=== PATIENT | male | born 1965 | race Caucasian/White ===

== ENCOUNTER 2017-07-09 02:45 | Inpatient (IN) | payer BC ==
[2017-07-09] VITALS (33 sets, daily range): BP systolic 85–121; BP diastolic 31–86
[~2017-07-09] VITALS: Ht 182.9 cm; Wt 102.1 kg
[~2017-07-09 02:45] MED LIST: ASPI81TA94 PO; CITA-137 PO; COCO1000 PO; CYA1000 PO; DM H PO; ESZ3PT PO; ESZO3TAB37 PO; FAMO-67 PO; GLUC-198 PO; HYDR-4308 PO; IBU600 PO; IBUP1TAB84 PO; IBUP800T37 PO; KET10 PO; LEVO-85 PO; LEVO500T83 PO; MULT1TAB64 PO; NAP375 PO; OMEP-125 PO; OXYC-763 PO; OXYC-868 PO; PRO25 PO; TAM4 PO; TAMS0.4C76 PO; VITA-197 PO; ZOLP-358 PO; antibiotic PO
[2017-07-09] MEDS ORDERED: METOCLOPRAMIDE 10 MG/2 ML SDV ONE (07:06)
[2017-07-09] MEDS ORDERED: LIDOCAINE MPF 1% 5 ML VIAL ONE (07:06)
[2017-07-09] MEDS ORDERED: DEXAMETHASONE SOD 4 MG/ML VIAL ONE (07:06)
[2017-07-09] MEDS ORDERED: ONDANSETRON 4 MG/2 ML VIAL ONE (07:06)
[2017-07-09] MEDS ORDERED: PROPOFOL EMUL(*) 10MG/ML 20 ML 20 ML ONE ×2 (07:06→08:40)
[2017-07-09] MEDS ORDERED: fentaNYL CITR 250 MCG/5 ML AMP ONE (07:08)
[2017-07-09] MEDS ORDERED: ROCURONIUM BROM 10 MG/ML 10 ML ONE (07:08)
[2017-07-09] MEDS ORDERED: SUGAMMADEX SOD 200 MG/2 ML SDV ONE (07:11)
[2017-07-09] MEDS ORDERED: POVIDONE IOD 10% OINT 30 GM TB TP ONE (07:21)
[2017-07-09 07:36] LABS: PLATELET COUNT, AUTOMATED 274 K/uL (150-450)
[2017-07-09 08:12] LABS: INR 1.05
[2017-07-09] MEDS ORDERED: MORPHINE PF 5 MG/10 ML AMP ONE (08:26)
[2017-07-09] MEDS ORDERED: MORPHINE 10 MG/ML SYR ONE (10:59)
[2017-07-09] MEDS ORDERED: cefTRIAXone(*) 2 GM VIAL 2 GM in NS(*) 0.9% 100 ML ADDVANT BAG 100 ML IVPB ONE (11:30)
[2017-07-09] MEDS ORDERED: MIDAZOLAM 2 MG/2 ML VIAL IVP ONE (11:30)
[2017-07-09] MEDS ORDERED: ceFAZolin(*) 1 GM VIAL 1 GM, GENTAMICIN(*) 80 MG/2 ML VIAL 60 MG in NS 0.9% IRRIGATION ... IR ONE (11:30)
[2017-07-09] MEDS ORDERED: LIDOCAINE/SOD BICARB 8.4% SYR ID ONE (11:30)
[2017-07-09] MEDS ORDERED: NORMOSOL R SOLN(*) 1000 ML BAG 1,000 ML IV PRN (11:30)
[2017-07-09] MEDS ORDERED: FAMOTIDINE 20 MG TAB PO ONE (11:30)
[2017-07-09] MEDS ORDERED: NEOMYCIN/POLYMYX/BACITR 30 GM TP ONE (12:34)
[2017-07-09] MEDS ORDERED: fentaNYL CITR 100 MCG/2 ML AMP ONE ×2 (12:58→13:32)
[2017-07-09] MEDS ORDERED: BELLADONNA ALK/OPIUM 60MG SUPP PR ONE (13:09)
[2017-07-09] MEDS ORDERED: GLYCOPYRROLATE 0.2 MG/ML SDV ONE (13:10)
[2017-07-09 13:39] LABS: PLATELET COUNT, AUTOMATED 310 K/uL (150-450)
[2017-07-09] MEDS ORDERED: HYDROmorphone PCA 6 MG/30 ML IV PRN (13:45)
[2017-07-09] MEDS ORDERED: FLUSH 10 ML SYR IVP PRN (13:45)
[2017-07-09] MEDS ORDERED: PROPANTHELINE BROMIDE 15MG TAB PO PRN (13:45)
[2017-07-09] MEDS ORDERED: ZOLPIDEM TARTRATE 5 MG TAB PO PRN (13:45)
[2017-07-09] MEDS ORDERED: ONDANSETRON 4 MG/2 ML VIAL IVP PRN ×2 (13:45→15:05)
[2017-07-09] MEDS ORDERED: NALOXONE HCL 0.4 MG/ML VIAL IVP PRN ×3 (13:45→15:05)
[2017-07-09] MEDS: ALBUTEROL 1.25 MG/3ML NEB NEB SCH ×3 (14:00→23:05)
[2017-07-09] MEDS: GENTAMICIN/NS 80 MG/100 ML PB 100 ML IVPB SCH ×2 (14:07→22:14)
[2017-07-09] MEDS: LR(*) 1000 ML BAG 1,000 ML IV PRN (15:00)
[2017-07-09] MEDS ORDERED: NALTREXONE HCL 50 MG TAB PO PRN (15:05)
[2017-07-09] MEDS ORDERED: METOCLOPRAMIDE 10 MG/2 ML SDV IVP PRN (15:05)
[2017-07-09] MEDS ORDERED: SCOPOLAMINE 1.5 MG PATCH TD PRN (15:05)
[2017-07-09] MEDS: NALBUPHINE HCL 10 MG/ML AMP IVP PRN (15:09)
[2017-07-09] MEDS ORDERED: GLYCOPYRROLATE 0.2 MG/ML SDV IVP PRN (19:11)
[2017-07-09] MEDS: DOCUSATE SODIUM 100 MG CAP PO SCH (20:30)
[2017-07-09] MEDS: NEOMYCIN/POLYMYX/BACITR OINT 1 PACKET TP SCH (20:30)
[2017-07-09] MEDS: FAMOTIDINE 20 MG TAB PO SCH (20:30)
[2017-07-09] MEDS: diphenhydrAMINE 25 MG CAP PO PRN (22:14)
[2017-07-10] VITALS (15 sets, daily range): BP systolic 82–111; BP diastolic 46–76; Ht 182.9 cm; Wt 102.1 kg
[2017-07-10] MEDS: LR(*) 1000 ML BAG 1,000 ML IV PRN ×2 (00:12→09:46)
[2017-07-10] MEDS ORDERED: BELLADONNA ALK/OPIUM 60MG SUPP PR PRN (01:12)
[2017-07-10] MEDS: NALBUPHINE HCL 10 MG/ML AMP IVP PRN ×2 (01:33→07:26)
[2017-07-10] MEDS: ALBUTEROL 1.25 MG/3ML NEB NEB SCH ×6 (01:43→21:55)
[2017-07-10] MEDS: GENTAMICIN/NS 80 MG/100 ML PB 100 ML IVPB SCH ×3 (05:38→21:20)
[2017-07-10] MEDS: diphenhydrAMINE 25 MG CAP PO PRN (05:38)
[2017-07-10 05:59] LABS: PLATELET COUNT, AUTOMATED 227 K/uL (150-450)
--- NOTE | 2017-07-10 06:45 | OPERATIVE REPORT 1 ---
EVENT DATE: July 09, 2017 SURGEON: Alex Ryder MD ANESTHESIOLOGIST: Joseph Delarosa MD ANESTHESIA: supply chain intern: Tyree Briggs MD PREOPERATIVE DIAGNOSIS Prostate cancer. POSTOPERATIVE DIAGNOSIS Prostate cancer. PROCEDURE PERFORMED 1. Radical retropubic prostatectomy. 2. Bilateral pelvic lymph node dissection. DESCRIPTION OF PROCEDURE Under general anesthetic, the patient was prepped and draped in the extended lithotomy position. The Salinas was placed per urethra and secured with 10 mL of solution in the balloon. The bladder was drained. The incision was made from the symphysis pubis to the umbilicus. The tissues were incised down to the anterior rectus fascia. Bleeding was controlled with spot coagulation and LigaSures throughout. The fascia was incised throughout the length of the incision. The endopelvic spaces were developed. Two sponges were placed in the dependent portion of the right and left endopelvic spaces bilaterally. The Bookwalter retractor was placed for lymph node dissection of the left endopelvic lymph nodes. The nerve and the neurovascular bundle, obturator were identified, preserved throughout the dissection. The left endopelvic lymph nodes were treated in likewise fashion. Frozen section diagnosis showed no evidence of metastatic disease. Fatty tissue was dissected from the anterior surface of the prostate and bladder neck area. The transfixion suture of #0-Vicryl was placed in the bed of the prostate, which was relatively small. The suspensory ligaments were cross clamped, and a transfixion suture of 2-0 Chromic catgut suture was placed through the tissue and was tied down prior to incision. The tissue was reclamped, and the tissue was divided with coagulation current almost down to the anterior urethra. Another bit of tissue anteriorly was cross clamped and tied off with 2-0 Chromic catgut suture. The urethra was elevated from the bed of the urethra. The nerves were reflected laterally bilaterally and a clamp was passed underneath the urethra ventrally. The anterior urethra was incised. The Salinas was delivered and secured. The anastomotic sutures of 2-0 Monocryl were placed at the 10, 2 and 12 o'clock position, and tagged appropriately. The posterior urethra was incised. The rectal urethralis fascia was perforated, and the prostate was elevated off the rectum cephalad to the bladder neck area. After careful dissection, the ampulla and vas were hemoclipped, and the blood supply to the seminal vesicles was hemoclipped. The neurovascular bundles were isolated close to the bladder neck area with its attachment to the prostate, and was tied off with #0-silk ligatures bilaterally. The prostate was dissected from the bladder neck area from its circular fibers circumferentially. This maintained a continent bladder neck area. The mucosa was everted with interrupted 4-0 Chromic catgut suture. The Sal[place] was placed per urethra into the bladder with approximately 10 mL of solution. The remainder of the anastomotic sutures were placed at the 5 and 7 o'clock positions. The sutures were placed through the bladder neck area at the 2, 12, 10, 5 and 7 o'clock positions. Bleeding was checked and treated prior to the anastomotic closure. The Sal[place] was filled with a total of 30 mL of solution. The bladder was brought down to the urogenital diaphragm. The anastomotic sutures were tied down circumferentially. The bladder irrigated clear at the conclusion of the anastomosis. The wound was irrigated with double antibiotic solution several times. Bleeding appeared to be satisfactorily controlled. The J-VAC drains were placed bilaterally in the lower quadrant areas and secured with #0-silk ligatures. The muscle was reapproximated with #1-Chromic catgut suture. The fascia was closed with loop PDS. The subcutaneous tissue was irrigated with double antibiotic solution. The subcutaneous tissue was closed with interrupted 3-0 plain catgut. The skin was closed with skin clips. Estimated blood loss: See anesthesiologist note for details. Patient was stable throughout the procedure. The wound was cleaned and dressed in usual fashion. The urethral catheter was secured to the left leg on gentle tension. Patient returned to the recovery room in satisfactory condition. INDICATIONS FOR PROCEDURE This is a 31-year-old white male complaining of prostate cancer, PSA was 5, and Mcintire's grade was 6. Options were discussed with the patient pre-treatment as to removal of the prostate versus radiation therapy, primarily seeds. Patient obtained a second opinion, and preferred to have his procedure done at our facility. That has been accomplished, see operative note for details. DISCHARGE INSTRUCTIONS Patient will be hospitalized probably for approximately 3-4 days. The patient will subsequently be probably discharged on Cipro, Pepcid, Motrin, Colace, Vicodin therapy. MTDD
[2017-07-10] MEDS: DOCUSATE SODIUM 100 MG CAP PO SCH ×4 (08:56→21:21)
[2017-07-10] MEDS: NEOMYCIN/POLYMYX/BACITR OINT 1 PACKET TP SCH ×2 (08:56→21:21)
[2017-07-10] MEDS: cefTRIAXone 1 GM VIAL IVP SCH (08:57)
[2017-07-10] MEDS: FAMOTIDINE 20 MG TAB PO SCH ×2 (08:57→21:20)
[2017-07-10] MEDS: MORPHINE 1 MG/ML 30 ML PCA IV PRN ×2 (09:05→22:00)
[2017-07-10] MEDS ORDERED: FUROSEMIDE 20 MG/2 ML VIAL IVP ONE (12:05)
[2017-07-10] MEDS: METOCLOPRAMIDE 10 MG TAB PO SCH ×3 (12:27→23:37)
[2017-07-10] MEDS: BISACODYL 10 MG SUPP PR SCH ×3 (17:00→21:20)
[2017-07-10] MEDS ORDERED: BISACODYL 10 MG SUPP PR PRN (22:05)
[2017-07-11] MEDS: ALBUTEROL 1.25 MG/3ML NEB NEB SCH ×6 (02:00→21:52)
[2017-07-11 04:29] VITALS: BP 116/54
[2017-07-11] MEDS: METOCLOPRAMIDE 10 MG TAB PO SCH (05:56)
[2017-07-11] MEDS: GENTAMICIN/NS 80 MG/100 ML PB 100 ML IVPB SCH ×3 (06:08→21:38)
[2017-07-11 06:45] LABS: PLATELET COUNT, AUTOMATED 241 K/uL (150-450)
[2017-07-11 07:37] VITALS: BP 117/73
[2017-07-11] MEDS: DOCUSATE SODIUM 100 MG CAP PO SCH ×3 (08:11→20:16)
[2017-07-11] MEDS: MULTIVITAMINS TAB PO SCH (08:12)
[2017-07-11] MEDS: FAMOTIDINE 20 MG TAB PO SCH ×2 (08:12→20:16)
[2017-07-11] MEDS: cefTRIAXone 1 GM VIAL IVP SCH (09:14)
[2017-07-11] MEDS: NEOMYCIN/POLYMYX/BACITR OINT 1 PACKET TP SCH ×2 (10:00→20:16)
[2017-07-11] MEDS ORDERED: FUROSEMIDE 20 MG/2 ML VIAL IVP ONE (11:50)
[2017-07-11] MEDS ORDERED: BISACODYL 10 MG SUPP PR PRN (11:50)
[2017-07-11] MEDS: MORPHINE 1 MG/ML 30 ML PCA IV PRN (12:34)
[2017-07-11 12:35] VITALS: BP 106/62
[2017-07-11 15:58] VITALS: BP 106/69
[2017-07-11] MEDS: diphenhydrAMINE 25 MG CAP PO PRN (20:16)
[2017-07-11] MEDS: APAP/HYDROCODONE 325/7.5 TAB PO PRN (20:17)
[2017-07-11 20:24] VITALS: BP 106/59
[2017-07-12] MEDS: APAP/HYDROCODONE 325/7.5 TAB PO PRN ×6 (01:14→21:31)
[2017-07-12 01:19] VITALS: BP 103/60
[2017-07-12] MEDS: ALBUTEROL 1.25 MG/3ML NEB NEB SCH ×3 (02:00→10:02)
[2017-07-12 03:18] VITALS: BP 106/61
[2017-07-12 07:53] VITALS: BP 106/61
[2017-07-12] MEDS ORDERED: PATCH REMOVAL 1 EA TP SCH (09:00)
[2017-07-12] MEDS: FAMOTIDINE 20 MG TAB PO SCH ×2 (09:12→20:26)
[2017-07-12] MEDS: NEOMYCIN/POLYMYX/BACITR OINT 1 PACKET TP SCH ×2 (09:13→20:25)
[2017-07-12] MEDS: MULTIVITAMINS TAB PO SCH (09:13)
[2017-07-12] MEDS: DOCUSATE SODIUM 100 MG CAP PO SCH ×2 (09:13→20:26)
[2017-07-12] MEDS: cefTRIAXone 1 GM VIAL IVP SCH (09:14)
[2017-07-12] MEDS ORDERED: NEOMYCIN/POLYMYX/BACITR OINT 1 PACKET TP ONE (10:00)
[2017-07-12] MEDS ORDERED: FUROSEMIDE 20 MG/2 ML VIAL IVP ONE (10:50)
[2017-07-12] MEDS ORDERED: KETOROLAC 15 MG/ML VIAL IVP ONE (10:50)
[2017-07-12] MEDS ORDERED: ALBUTEROL 1.25 MG/3ML NEB NEB PRN (11:35)
[2017-07-12] MEDS ORDERED: ALBUTEROL 2.5 MG/3 ML NEB NEB SCH (14:00)
[2017-07-12 16:00] VITALS: BP 105/57
[2017-07-12] MEDS: ALBUTEROL 2.5 MG/3 ML NEB NEB SCH ×3 (18:29→22:30)
[2017-07-12 20:22] VITALS: BP 100/60
[2017-07-12] MEDS: KETOROLAC 15 MG/ML VIAL IVP SCH (20:26)
[2017-07-13] MEDS: APAP/HYDROCODONE 325/7.5 TAB PO PRN ×3 (01:35→10:37)
[2017-07-13 01:38] VITALS: BP 110/55
[2017-07-13] MEDS: ALBUTEROL 2.5 MG/3 ML NEB NEB SCH ×2 (05:32→11:13)
[2017-07-13] MEDS: KETOROLAC 15 MG/ML VIAL IVP SCH (05:40)
[2017-07-13 08:03] VITALS: BP 98/59
[2017-07-13] MEDS: cefTRIAXone 1 GM VIAL IVP SCH (08:19)
[2017-07-13] MEDS ORDERED: DOCU-416 PO (09:40)
[2017-07-13] MEDS ORDERED: FAMO20TA28 PO (09:40)
[2017-07-13] MEDS ORDERED: IBUP800T37 PO (09:41)
[2017-07-13] MEDS ORDERED: HYDR-4308 PO (09:42)
[2017-07-13] MEDS ORDERED: HYDR-4309 PO (09:42)
[2017-07-13] MEDS ORDERED: CEPH500T7 PO (09:45)
[2017-07-13] MEDS: FAMOTIDINE 20 MG TAB PO SCH (10:36)
[2017-07-13] MEDS: DOCUSATE SODIUM 100 MG CAP PO SCH (10:37)
[2017-07-13] MEDS: NEOMYCIN/POLYMYX/BACITR OINT 1 PACKET TP SCH (10:37)
[2017-07-13] MEDS: MULTIVITAMINS TAB PO SCH (10:37)
[2017-07-13 11:48] VITALS: BP 111/59
== END 2017-07-13 12:00 | disposition home or self-care (01) | DRG 708 ==
LOC: OR 02:45 → ICU 14:45 → MED 07-10 12:15
PROC: 0VT30ZZ Resection of Bilateral Seminal Vesicles, Open Approach (ICD-10-PCS; 2017-07-09)
PROC: 07BC0ZZ Excision of Pelvis Lymphatic, Open Approach (ICD-10-PCS; 2017-07-09)
PROC: 0VT00ZZ Resection of Prostate, Open Approach (ICD-10-PCS; principal; 2017-07-09 08:43)
DX: C61 Malignant neoplasm of prostate (principal); F41.9 Anxiety disorder, unspecified; Z91.013 Allergy to seafood
CPT/HCPCS: 36415; 82310; 82374; 82435; 82565; 82947; 84132; 84295; 84520; 85025; 85049; 85379; 85384; 85610; 85730; 86850; 86900; 86901; 86920; 88305; 88309; 88331; 94010; 94640; 97161; A4338; J0690; J0696; J1100; J1170; J1580; J1885; J1940; J2001; J2250; J2270; J2300; J2405; J2704; J2765; J3010; J3490; J7050; J7120; J7613; J8597; Q0163

== ENCOUNTER → 2017-07-23 | Outpatient (CLI) | payer BC ==
[2017-07-10 09:50] VITALS: BMI 30.5
[~2017-07-23] MED LIST changes: +CEPH500T7 PO; +DOCU-416 PO; +FAMO20TA28 PO; +HYDR-4309 PO; +IOTHALAMATE MEGLU 172MG/ML BTL 250 ML IVPB ONE
--- NOTE | 2017-07-23 16:52 | RADIOLOGY IMAGING REPORT ---
FACILITY: [facility] PATIENT NAME: Ashish Mustafa : 1965 MR: [id number] V: [id number] EXAM DATE: ORDERING PHYSICIAN: LANDON BARRIOS TECHNOLOGIST: [place] [facility] [place] Ashish Mustafa : 1965 Visit/Account:[id number] Date of Sevice: 07/23/2017 Exam type: CYSTOGRAM History: Posterior prostatectomy Comparison: None. Findings: Cysto-Conray was instilled into the urinary bladder through the indwelling Salinas catheter by Dr. Braden jones. Numerous KUBs demonstrate contrast within the urinary bladder. There was some extravasation of c ontrast around the prosthetic urethral portion of the Salinas catheter. No extraluminal extravasation from the bladder itself was identified. IMPRESSION: 1. Some contrast extravasation was noted about the Salinas catheter in the vicinity of the prosthetic urethra Report Dictated By: Connie Fallon MD at 07/23/2017 4:45 PM Report E-Signed By: Connie Fallon MD at 07/23/2017 4:47 PM WSN:[email or web address]
== END ==
LOC: RAD 00:32
DX: C61 Malignant neoplasm of prostate (principal)
CPT/HCPCS: 51600; 74430; Q9958

== ENCOUNTER → 2017-07-28 | Outpatient (CLI) | payer BC ==
[2017-07-10 09:50] VITALS: BMI 30.5
[~2017-07-28] MED LIST changes: -IOTHALAMATE MEGLU 172MG/ML BTL 250 ML IVPB ONE
--- NOTE | 2017-07-28 09:13 | RADIOLOGY IMAGING REPORT ---
FACILITY: [facility] - [place] PATIENT NAME: Ashish Mustafa : 1965 MR: [id number] V: [id number] EXAM DATE: ORDERING PHYSICIAN: LANDON BARRIOS TECHNOLOGIST: Location: [facility] Patient: Ashish Mustafa : 1965 Visit/Account:[id number] Date of Sevice: 07/28/2017 Exam type: CYSTOGRAM History: Adenocarcinoma the prostate Comparison: July 23, 2017. Findings: Cysto-Conray contrast was instilled in the urinary bladder through the existing Salinas catheter by Dr. Barrios. Numerous KUBs demonstrate contrast within the urinary bladder. There was some extravasation of contrast around the prostatic urethral portion of Salinas catheter although to a lesser extent than on the prior study. IMPRESSION: 1. As above Report Dictated By: Connie Fallon MD at 07/28/2017 9:07 AM Report E-Signed By: Connie Fallon MD at 07/28/2017 9:09 AM WSN:[email or web address]
== END ==
LOC: RAD 01:42
DX: C61 Malignant neoplasm of prostate (principal)
CPT/HCPCS: 51600; 74430; Q9958

== ENCOUNTER → 2017-07-29 | Outpatient (CLI) | payer BC ==
[2017-07-10 09:50] VITALS: BMI 30.5
== END ==
LOC: LAB 10:24
DX: C61 Malignant neoplasm of prostate (principal)
CPT/HCPCS: 81001; 87088

== ENCOUNTER 2017-08-01 14:33 | Emergency (ER) | payer BC ==
[2017-07-10 09:50] VITALS: Wt 99.8 kg
[2017-08-01] MEDS ORDERED: NS(*) 0.9% 1000 ML BAG 1,000 ML IV ONE (14:55)
--- NOTE | 2017-08-01 14:55 | ER Report ---
History and Physical Time Seen By MD: 14:45 Hx. of Stated Complaint: Pt reporting "alot of blood" coming from penis when he urinates (15 minutes ago). Catheter was removed on thursday. Pt had prostatectomy Jul 09. Pt on prescription strength ibuprofin and states he is also bleeding from rectum (stated he thinks his BM) looks like coffee grounds. HPI/ROS CHIEF COMPLAINT: Blood in urine HISTORY OF PRESENT ILLNESS: 52-year-old male patient presents to emergency room with complaint of blood in his urine. Patient states that he is approximately 3 weeks postop from a total prostatectomy. He states that he been healing well, they did pull the catheter out on Thursday. He had a urinalysis done on Thursday. He states that today he started having bleeding. He states that he has passing a large amount of blood from his bladder. He denies having any fevers, chills, nausea, vomiting. Has had diarrhea. He states it does have a coffee-ground appearance. He has been taking ibuprofen 800 mg 3 times a day for the past 3 weeks. REVIEW OF SYSTEMS: Respiratory: No cough, no dyspnea. Cardiovascular: No chest pain, no palpitations. Gastrointestinal: As noted above Musculoskeletal: No back pain. Allergies: Coded Allergies: nitrous oxide (Verified Allergy, Severe, nausea and vomiting, 05/02/14) hydromorphone (Verified Allergy, Unknown, 08/01/17) procainamide (Unverified Allergy, Unknown, UNKNOWN, 04/10/14) shellfish derived (Unverified Allergy, Unknown, SHRIMP, 04/10/14) shrimp (Verified Allergy, Unknown, 08/01/17) Home Meds Active Scripts Ketorolac Tromethamine (KETOROLAC TROMETHAMINE) 10 Mg Tab, 10 MG PO Q6H, #20 TAB Prov:ZOIE AGUILA BILLIARD TABLE ASSEMBLER 08/01/17 Reported Medications Ibuprofen (IBUPROFEN) 800 Mg Tablet, 1 TAB PO TID Y for PAIN, #50 TAB 07/13/17 Docusate Sodium (COLACE) 100 Mg Capsule, 100 MG PO BID, CAPSULE 07/13/17 Famotidine (PEPCID) 20 Mg Tablet, 20 MG PO BID, #20 TAB 07/13/17 Levofloxacin 500 Mg Tab (LEVOFLOXACIN 500 MG TAB) 500 Mg Tablet, 500 MG PO DAILY , TAB 07/08/17 Hydrocodone Bit/Acetaminophen (NORCO 7.5-325 TABLET) 1 Each Tablet, 1 EACH PO Q4 -6H Y for PAIN for 30 Days, #30 06/15/17 Discontinued Reported Medications Cephalexin 500 Mg Tab (KEFLEX 500 MG TAB) 500 Mg Tablet, 500 MG PO TID, TAB Take it three times a day for 5 days and then one BID thereafter 07/13/17 Hydrocodone Bit/Acetaminophen (NORCO 7.5-325 TABLET) 1 Each Tablet, 1 EACH PO Q4 -6H Y for PAIN, #30 07/13/17 Hydrocodone Bit/Acetaminophen (NORCO 5-325 TABLET) 1 Each Tablet, 1 EACH PO Q4- 6H Y for PAIN, #30 TAB 07/13/17 Discontinued Scripts Zolpidem Tartrate (ZOLPIDEM TARTRATE) 10 Mg Tablet, 1 TAB PO HS Y for sleeplessness, #30 TAB 1 Refill Prov:ROSSANA MENDEZ MD 06/25/17 Past Medical/Surgical History Patient has a past medical history of pneumonia, blood in stool, prostate cancer arm fracture, alcohol use. Patient has a surgical history of a prostatectomy. Patient has a family medical history of cancer, CAD, diabetes. Reviewed Nurses Notes: Yes Hx Smoking: No Smoking Status: Never Smoker Exposure to Second Hand Smoke?: Yes Hx Alcohol Use: Yes Constitutional Vital Sign - Last 24 Hours 08/01/17 08/01/17 08/01/17 08/01/17 14:38 14:38 14:43 14:48 Temp 98.2 Pulse 75 75 69 Resp 18 B/P (MAP) 132/84 132/84 (100) Pulse Ox 94 94 93 O2 Delivery Room Air 08/01/17 08/01/17 08/01/17 08/01/17 14:53 15:03 15:08 15:13 Pulse 67 70 61 Pulse Ox 93 96 93 95 08/01/17 08/01/17 08/01/17 08/01/17 15:18 15:23 15:24 15:29 Pulse 61 58 66 61 B/P (MAP) 109/72 (84) Pulse Ox 97 94 92 08/01/17 08/01/17 08/01/17 08/01/17 15:54 15:59 16:00 16:04 Pulse 72 65 66 B/P (MAP) 115/86 (96) 122/77 (92) Pulse Ox 93 91 93 08/01/17 08/01/17 08/01/17 08/01/17 16:09 16:14 16:19 16:20 Pulse 67 73 65 B/P (MAP) 118/74 (89) Pulse Ox 93 97 95 08/01/17 16:44 Pulse 76 Pulse Ox 95 Intake and Output 08/01/17 08/01/17 08/02/17 15:00 23:00 07:00 Intake Total 1000 ml Balance 1000 ml Physical Exam General Appearance: The patient is alert, has no immediate need for airway protection and no current signs of toxicity. ENT: Tympanic membranes are pearly-mccarthy, auditory canals are patent, mucous membranes are moist. Respiratory: Chest is non tender, lungs are clear to auscultation. Cardiac: regular rate and rhythm Gastrointestinal: Abdomen is soft and non tender, no masses, bowel sounds normal. Musculoskeletal: Neck: Neck is supple and non tender. Extremities have full range of motion and are non tender. Skin: No rashes or lesions. DIFFERENTIAL DIAGNOSIS: After history and physical exam differential diagnosis was considered for urinary tract infection, postoperative complication, GI bleed. Medical Decision Making Data Points Result Diagram: 08/01/17 1502 08/01/17 1502 Laboratory Hematology Test 08/01/17 15:02 Red Blood Count 4.73 M/uL (4.00-5.60) Mean Corpuscular Volume 88.5 fL (80.0-96.0) Mean Corpuscular Hemoglobin 30.3 pg (26.0-33.0) Mean Corpuscular Hemoglobin Concent 34.3 g/dL (32.0-36.0) Red Cell Distribution Width 13.3 % (11.5-14.5) Mean Platelet Volume 7.4 fL (7.2-11.1) Neutrophils (%) (Auto) 67.0 % (39.4-72.5) Lymphocytes (%) (Auto) 23.5 % (17.6-49.6) Monocytes (%) (Auto) 7.4 % (4.1-12.4) Eosinophils (%) (Auto) 1.5 % (0.4-6.7) Basophils (%) (Auto) 0.6 % (0.3-1.4) Nucleated RBC Relative Count (auto) 0.3 /100WBC Neutrophils # (Auto) 3.7 K/uL (2.0-7.4) Lymphocytes # (Auto) 1.3 K/uL (1.3-3.6) Monocytes # (Auto) 0.4 K/uL (0.3-1.0) Eosinophils # (Auto) 0.1 K/uL (0.0-0.5) Basophils # (Auto) 0.0 K/uL (0.0-0.1) Nucleated RBC Absolute Count (auto) 0.02 K/uL Urine Color Red Urine Clarity Turbid Urine pH 6.0 pH (4.8-9.5) Urine Specific [place] 1.024 Urine Protein 100 mg/dL (NEGATIVE) Urine Glucose (UA) 50 mg/dL (NEGATIVE) Urine Ketones Negative mg/dL (NEGATIVE) Urine Blood Large (NEGATIVE) Urine Nitrite Negative (NEGATIVE) Urine Bilirubin Negative (NEGATIVE) Urine Urobilinogen Negative mg/dL (0.2-1.9) Urine Leukocyte Esterase Negative (NEGATIVE) Urine RBC 1656 /HPF (0-2/HPF) Urine WBC 16 /HPF (0-5/HPF) Urine Squamous Epithelial Cells None /LPF (</=FEW) Urine Bacteria Negative /HPF (NONE-FEW) Urine Hyaline Casts Few /LPF (NONE-FEW) Urine Mucus None /HPF (NONE-FEW) Sodium Level 141 mmol/L (137-145) Potassium Level 4.2 mmol/L (3.5-5.0) Chloride Level 105 mmol/L (98-107) Carbon Dioxide Level 24 mmol/L (22-30) Blood Urea Nitrogen 14 mg/dl (9-21) Creatinine 1.20 mg/dl (0.66-1.25) Glomerular Filtration Rate Calc > 60.0 Random Glucose 101 mg/dl (75-110) Calcium Level 9.5 mg/dl (8.4-10.2) Total Bilirubin 0.6 mg/dl (0.2-1.3) Aspartate Amino Transf (AST/SGOT) 23 U/L (0-35) Alanine Aminotransferase (ALT/SGPT) 35 U/L (0-56) Alkaline Phosphatase 63 U/L (0-126) C-Reactive Protein 2.4 mg/dl (<1.0) Total Protein 7.3 gm/dl (6.3-8.2) Albumin 4.1 g/dl (3.5-5.0) Chemistry Test 08/01/17 15:02 White Blood Count 5.5 k/uL (4.5-11.0) Red Blood Count 4.73 M/uL (4.00-5.60) Hemoglobin 14.4 g/dL (14.0-18.0) Hematocrit 41.9 % (42.0-52.0) Mean Corpuscular Volume 88.5 fL (80.0-96.0) Mean Corpuscular Hemoglobin 30.3 pg (26.0-33.0) Mean Corpuscular Hemoglobin Concent 34.3 g/dL (32.0-36.0) Red Cell Distribution Width 13.3 % (11.5-14.5) Platelet Count 360 K/uL (150-450) Mean Platelet Volume 7.4 fL (7.2-11.1) Neutrophils (%) (Auto) 67.0 % (39.4-72.5) Lymphocytes (%) (Auto) 23.5 % (17.6-49.6) Monocytes (%) (Auto) 7.4 % (4.1-12.4) Eosinophils (%) (Auto) 1.5 % (0.4-6.7) Basophils (%) (Auto) 0.6 % (0.3-1.4) Nucleated RBC Relative Count (auto) 0.3 /100WBC Neutrophils # (Auto) 3.7 K/uL (2.0-7.4) Lymphocytes # (Auto) 1.3 K/uL (1.3-3.6) Monocytes # (Auto) 0.4 K/uL (0.3-1.0) Eosinophils # (Auto) 0.1 K/uL (0.0-0.5) Basophils # (Auto) 0.0 K/uL (0.0-0.1) Nucleated RBC Absolute Count (auto) 0.02 K/uL Urine Color Red Urine Clarity Turbid Urine pH 6.0 pH (4.8-9.5) Urine Specific [place] 1.024 Urine Protein 100 mg/dL (NEGATIVE) Urine Glucose (UA) 50 mg/dL (NEGATIVE) Urine Ketones Negative mg/dL (NEGATIVE) Urine Blood Large (NEGATIVE) Urine Nitrite Negative (NEGATIVE) Urine Bilirubin Negative (NEGATIVE) Urine Urobilinogen Negative mg/dL (0.2-1.9) Urine Leukocyte Esterase Negative (NEGATIVE) Urine RBC 1656 /HPF (0-2/HPF) Urine WBC 16 /HPF (0-5/HPF) Urine Squamous Epithelial Cells None /LPF (</=FEW) Urine Bacteria Negative /HPF (NONE-FEW) Urine Hyaline Casts Few /LPF (NONE-FEW) Urine Mucus None /HPF (NONE-FEW) Glomerular Filtration Rate Calc > 60.0 Calcium Level 9.5 mg/dl (8.4-10.2) Total Bilirubin 0.6 mg/dl (0.2-1.3) Aspartate Amino Transf (AST/SGOT) 23 U/L (0-35) Alanine Aminotransferase (ALT/SGPT) 35 U/L (0-56) Alkaline Phosphatase 63 U/L (0-126) C-Reactive Protein 2.4 mg/dl (<1.0) Total Protein 7.3 gm/dl (6.3-8.2) Albumin 4.1 g/dl (3.5-5.0) Urinalysis Test 08/01/17 15:02 Urine Color Red Urine Clarity Turbid Urine pH 6.0 pH (4.8-9.5) Urine Specific [place] 1.024 Urine Protein 100 mg/dL (NEGATIVE) Urine Glucose (UA) 50 mg/dL (NEGATIVE) Urine Ketones Negative mg/dL (NEGATIVE) Urine Blood Large (NEGATIVE) Urine Nitrite Negative (NEGATIVE) Urine Bilirubin Negative (NEGATIVE) Urine Urobilinogen Negative mg/dL (0.2-1.9) Urine Leukocyte Esterase Negative (NEGATIVE) Urine RBC 1656 /HPF (0-2/HPF) Urine WBC 16 /HPF (0-5/HPF) Urine Squamous Epithelial Cells None /LPF (</=FEW) Urine Bacteria Negative /HPF (NONE-FEW) Urine Hyaline Casts Few /LPF (NONE-FEW) Urine Mucus None /HPF (NONE-FEW) EKG/Imaging Imaging CT abdomen and pelvis with IV contrast Indication: Blood in urine. History of prostatectomy. Diarrhea. Comparison: 06/26/2017.. Technique: Axial CT images were obtained through the abdomen and pelvis during injection of nonionic iodinated intravenous contrast. Reformatted coronal and sagittal images were also obtained. One of the following dose optimization techniques was utilized in the performance of this exam: Automated exposure control; adjustment of the mA and/ or kV according to the patient's size; or use of an iterative reconstruction technique. Specific details can be referenced in the facility's radiology CT exam operational policy. Contrast: 100 ml of Isovue-370 IV contrast. Findings: Lower lung stephens: Limited views lower lung field are unremarkable. Liver: No focal parenchymal abnormality of the liver. Biliary: Multiple gallstones are again present without other gallbladder or biliary abnormality. Pancreas: Normal appearance. Spleen: Normal appearance. Adrenal glands: Unremarkable. Kidneys / retroperitoneum: There is a 2 mm stone seen in the collecting system of the right kidney without hydronephrosis. This is stable. Left kidney shows no stone or hydronephrosis.. No focal lesions in the kidneys. Bowel / peritoneum / mesenteries: Multiple diverticula seen along the sigmoid colon without pericolonic inflammation. The remaining gastrointestinal tract, including the appendix, within normal limits. Stomach is unremarkable. No free air, free fluid or areas of inflammation. There is a small fluid collection in the prostate bed measuring 3.6 x 1.4 cm [place] of 12. There are foci of air around this area and postsurgical changes with surgical clips present. Lymph node assessment: No pathologic adenopathy identified. Pelvic structures: Status post prostatectomy. Postsurgical changes small fluid collection is present as described above. The urinary bladder does show circumference wall thickening but is partially decompressed. The small amount of air seen in nondependent portion of the urinary bladder. No focal abnormality to the urinary bladder. The remaining pelvic structures visualized within normal limits. Vessels: No significant atherosclerotic calcifications seen throughout a nonaneurysmal abdominal aorta and branches. Musculoskeletal / Body wall: No acute or aggressive osseous abnormality. Stable bilateral pars defect L5 level without spondylolisthesis. IMPRESSION: 1. Status post prostatectomy. The prostate bed does show postsurgical changes, foci of air and a small fluid collection which appears to be more of a seroma then an abscess. 2. The urinary bladder does show circumference wall thickening. This could be due to the partially decompressed appearance. Other etiologies would include infection or inflammation. The small amount of air is most likely residual from instrumentation/catheterization.. 3. Diverticulosis without radiographic indication diverticulitis. 4. Stable cholelithiasis and nonobstructing right renal calculi. Report Dictated By: Kalpesh Ang at 08/01/2017 3:55 PM Report E-Signed By: Kalpesh Sav at 08/01/2017 4:03 PM ED Course/Re-evaluation ED Course Patient was admitted to exam room, history and physical were obtained. Differential diagnoses were considered. On examination patient has some tenderness to the suprapubic region. A CBC, CMP, urinalysis were obtained. Patient had 1000 red blood cells per high-power field on the urinalysis. His CBC and CMP were unremarkable. CT scan was unremarkable, he did show a bladder with mild thickening of the wall, but could be related to infection, inflammation or due to the fact there is not much urine in his bladder. There was some fluid around for the prostate was with several foci of air, however there is no signs for abscess. I discussed results with the patient. I believe that we need to get plenty of rest, increase fluid intake, x-ray was getting up and exercising. He is return to the emergency room if condition worsens. I will like him follow-up with Dr. Ryder next week. Due to the discomfort with having bowel movements I would like him to stop taking the stool softener. I believe that is going help with any colon spasms that he may be having. I discussed this with the patient is and they verbalized understanding and agreement with plan. Decision to Disposition Date: Aug 01, 2017 Decision to Disposition Time: 16:38 Depart Departure Latest Vital Signs Vital Signs Date Time Temp Pulse Resp B/P (MAP) Pulse Ox O2 Delivery O2 Flow Rate FiO2 08/01/17 16:44 76 95 08/01/17 16:20 118/74 (89) 08/01/17 14:38 98.2 18 Room Air Impression: Primary Impression: Hematuria Additional Impression: S/P prostatectomy Referrals: ROSSANA MENDEZ MD (PCP) New Scripts Ketorolac Tromethamine (KETOROLAC TROMETHAMINE) 10 Mg Tab 10 MG PO Q6H, #20 TAB Prov: ZOIE AGUILA BILLIARD TABLE ASSEMBLER 08/01/17 Patient Instructions: Hematuria (ED) Additional Instructions: Increase fluid intake. Get plenty of rest. Make sure that you are getting up and exercising 2-3 times a day. Follow up with Dr. Ryder next week. We are going to culture the urine to make sure that there isn't an infection. No ibuprofen while taking the Toradol. Problem Qualifiers Primary Impression: Hematuria Hematuria type: gross Qualified Codes: R31.0 - Gross hematuria ZOIE AGUILA Aug 01, 2017 14:55
[2017-08-01] MEDS ORDERED: NS 0.9% 50 ML VIAL 100 ML ONE (15:12)
[2017-08-01] MEDS ORDERED: IOPAMIDOL 76% 100 ML INFUS BTL 100 ML ONE (15:12)
[2017-08-01 15:27] LABS: PLATELET COUNT, AUTOMATED 360 K/uL (150-450)
--- NOTE | 2017-08-01 16:07 | RADIOLOGY IMAGING REPORT ---
FACILITY: [facility] PATIENT NAME: Ashish Mustafa : 1965 MR: [id number] V: [id number] EXAM DATE: ORDERING PHYSICIAN: ZOIE AGUILA TECHNOLOGIST: Location: [facility] Patient: Ashish Mustafa : 1965 Visit/Account:[id number] Date of Sevice: 08/01/2017 CT abdomen and pelvis with IV contrast Indication: Blood in urine. History of prostatectomy. Diarrhea. Comparison: 06/26/2017.. Technique: Axial CT images were obtained through the abdomen and pelvis during injection of nonioni c iodinated intravenous contrast. Reformatted coronal and sagittal images were also obtained. One of the following dose optimization techniques was utilized in the performance of this exam: Autom ated exposure control; adjustment of the mA and/or kV according to the patient's size; or use of an i terative reconstruction technique. Specific details can be referenced in the facility's radiology C T exam operational policy. Contrast: 100 ml of Isovue-370 IV contrast. Findings: Lower lung stephens: Limited views lower lung field are unremarkable. Liver: No focal parenchymal abnormality of the liver. Biliary: Multiple gallstones are again present without other gallbladder or biliary abnormality. Pancreas: Normal appearance. Spleen: Normal appearance. Adrenal glands: Unremarkable. Kidneys / retroperitoneum: There is a 2 mm stone seen in the collecting system of the right kidney wi thout hydronephrosis. This is stable. Left kidney shows no stone or hydronephrosis.. No focal lesions in the kidneys. Bowel / peritoneum / mesenteries: Multiple diverticula seen along the sigmoid colon without pericolon ic inflammation. The remaining gastrointestinal tract, including the appendix, within normal limits. Stomach is unremarkable. No free air, free fluid or areas of inflammation. There is a small fluid collection in the prostate b ed measuring 3.6 x 1.4 cm [place]oun[place] of 12. There are foci of air around this area and postsurgical c hanges with surgical clips present. Lymph node assessment: No pathologic adenopathy identified. Pelvic structures: Status post prostatectomy. Postsurgical changes small fluid collection is prese nt as described above. The urinary bladder does show circumference wall thickening but is partially d ecompressed. The small amount of air seen in nondependent portion of the urinary bladder. No focal ab normality to the urinary bladder. The remaining pelvic structures visualized within normal limits. Vessels: No significant atherosclerotic calcifications seen throughout a nonaneurysmal abdominal aort a and branches. Musculoskeletal / Body wall: No acute or aggressive osseous abnormality. Stable bilateral pars defect L5 level without spondylolisthesis. IMPRESSION: 1. Status post prostatectomy. The prostate bed does show postsurgical changes, foci of air and a smal l fluid collection which appears to be more of a seroma then an abscess. 2. The urinary bladder does show circumference wall thickening. This could be due to the partially de compressed appearance. Other etiologies would include infection or inflammation. The small amount of air is most likely residual from instrumentation/catheterization.. 3. Diverticulosis without radiographic indication diverticulitis. 4. Stable cholelithiasis and nonobstructing right renal calculi. Report Dictated By: Kalpesh Ang at 08/01/2017 3:55 PM Report E-Signed By: Kalpesh Ang at 08/01/2017 4:03 PM WSN:[id number]
[2017-08-01 16:20] VITALS: BP 118/74
[2017-08-01] MEDS ORDERED: KET10 PO (16:37)
== END 2017-08-01 16:50 | disposition home or self-care (01) ==
LOC: ER 14:57
DX: R31.9 Hematuria, unspecified (principal); Z98.890 Other specified postprocedural states
CPT/HCPCS: 74177; 81001; 85025; 86140; 96360; 99284; J7030; J7050; Q9967; 82040; 82247; 82310; 82374; 82435; 82565; 82947; 84075; 84132; 84155; 84295; 84450; 84460; 84520